=== PATIENT | male | born 1940 | race Caucasian/White ===

== ENCOUNTER 2017-01-14 11:33 | Outpatient (CLI) | payer MEDICARE, OTHER ==
[2017-01-14 11:55] LABS: CALCIUM 9.3 mg/dL (8.5-10.3); POTASSIUM 4.3 mmol/L (3.5-5.0)
--- NOTE | 2017-01-14 12:34 | XRAY Report ---
TWO-VIEW CHEST: 01/14/2017 CLINICAL INDICATION: Shortness of breath. COMPARISON: 09/12/2015 FINDINGS: Frontal and lateral views of the chest demonstrate stable changes of previous cardiac surg sunitha. The cardiac silhouette is not enlarged. The lungs are hyperinflated, compatible with COPD. No focal consolidation, effusion, or pneumothorax is present. IMPRESSION: COPD. POSTOPERATIVE CHANGES. NO EVIDENCE OF ACUTE CARDIOPULMONARY DISEASE. JOB #: [id number] EXT JOB #:[id number]
== END 2017-01-14 11:34 | disposition home or self-care (01) ==
LOC: LAB 11:33
PROVIDERS: ATTEND Internal Medicine Cardiovascular Disease
DX: J44.9 Chronic obstructive pulmonary disease, unspecified (principal); Z95.1 Presence of aortocoronary bypass graft; I45.2 Bifascicular block; I77.9 Disorder of arteries and arterioles, unspecified; I10 Essential (primary) hypertension; E87.5 Hyperkalemia; E78.00 Pure hypercholesterolemia, unspecified
CPT/HCPCS: 36415; 71020; 80048

== ENCOUNTER 2017-07-25 00:44 | Emergency (ER) | payer MEDICARE, OTHER ==
[2017-07-25] MEDS ORDERED: LIDOCAINE VISCOUS 2% 15 ML UDC MM STA (01:18)
--- NOTE | 2017-07-25 01:25 | ED Physician Documentation ---
PD HPI HEENT - Stated complaint Stated Complaint: THROAT PAIN - Chief complaint Chief Complaint: Resp - History obtained from History obtained from: Patient - History of Present Illness Timing - onset: How many days ago (3) Timing - details: Gradual onset, Still present Location: Throat Associated symptoms: No: Fever, Congestion Recently seen: Clinic - Additional information Additional information: Patient is a 77 year old male who is presenting to the emergency department for sore throat. patient has recently been diagnosed with pnuemonia, on azithromycin. patient states that he has developed a sore throat over the last few days. Review of Systems Constitutional: denies: Fever, Chills Eyes: reports: Reviewed and negative Ears: reports: Reviewed and negative Nose: denies: Rhinorrhea / runny nose, Congestion Throat: reports: Sore throat Cardiac: denies: Chest pain / pressure, Palpitations Respiratory: reports: Cough. denies: Wheezing GI: denies: Nausea, Vomiting : reports: Reviewed and negative Skin: reports: Reviewed and negative Musculoskeletal: reports: Reviewed and negative Neurologic: denies: Generalized weakness, Focal weakness Psychiatric: reports: Reviewed and negative Endocrine: reports: Reviewed and negative PD PAST MEDICAL HISTORY - Past Medical History Past Medical History: Yes Cardiovascular: Hypertension, High cholesterol, Coronary artery disease, [place] GI: Hiatal hernia Other Past Medical History: Bronchitis - Past Surgical History Past Surgical History: Yes Cardiovascular: CABG - Present Medications Home Medications: Ambulatory Orders Medication Instructions Recorded Confirmed Aspirin [Aspir 81] 81 mg PO 11/10/13 11/10/13 Atenolol 12.5 mg PO DAILY #30 tablet 11/10/13 Atorvastatin Calcium [Lipitor] 20 mg PO 11/10/13 11/10/13 Lisinopril 20 mg PO 11/10/13 11/10/13 Pantoprazole Sodium [Protonix] 40 mg PO DAILY 11/10/13 11/10/13 - Allergies Allergies/Adverse Reactions: Allergies Allergy/AdvReac Type Severity Reaction Status Date / Time Sulfa (Sulfonamide Allergy Intermediate Rash Verified 11/10/13 08:11 Antibiotics) - Social History Does the pt smoke?: No Smoking Status: Never smoker Does the pt drink ETOH?: No ETOH Use: Beer Does the pt have substance abuse?: No - Immunizations Immunizations are current?: Yes PD ED PE NORMAL - Vitals Vital signs reviewed: Yes - General General: Alert and oriented X 3, No acute distress, Well developed/nourished - HEENT HEENT: Atraumatic, PERRL, Moist mucous membranes - Neck Neck: Supple, no meningeal sign, No JVD - Cardiac Cardiac: RRR, No murmur - Respiratory Respiratory: No respiratory distress - Abdomen Abdomen: Soft - Derm Derm: Normal color, Warm and dry, No rash - Extremities Extremities: No deformity, Normal ROM s pain - Neuro Neuro: Alert and oriented X 3, No motor deficit, No sensory deficit, Normal speech PD ED PE EXPANDED - HEENT HEENT: Moist mucous membranes, Pharyngeal erythema. No: Swollen tonsils, Tonsillar exudate, Soft palate petecchiae Results - Vitals Vitals: Vital Signs - 24 hr 07/25/17 07/25/17 00:52 01:31 Temperature 36.4 C L 37.5 C Heart Rate 93 89 Respiratory 18 15 Rate Blood Pressure 167/74 H 149/78 H O2 Saturation 96 97 Oxygen O2 Source Room air PD MEDICAL DECISION MAKING - ED course Complexity details: reviewed old records, reviewed results, re-evaluated patient , considered differential, d/w patient ED course: patient was seen and examined at bedside. Patient was well appearing. Patient had mild pharyngeal erythema likely secondary to his cough. patient had no exudates or adenopathy. Patient was treated with viscous lidocaine. patient required no further work up and was stable for discharge with outpatient follow up. Departure - Departure Disposition: 01 Home, Self Care Clinical Impression: Pharyngitis Condition: Good Instructions: Strep Throat Follow-Up: Jeanmarie Hatfield MD [Primary Care Provider] - Within 3 Days Comments: Your symptoms today are likely secondary from all the coughing causing a sore throat. There is no apparent infection. You should look for throat drops that contain benzocaine or a similar substance. You should follow up with your doctor if your symptoms persist next week. You may return to the emergency department at any time for new, worsening or uncontrollable symptoms. Discharge Date/Time: 07/25/17 01:34
[2017-07-25 01:31] VITALS: BP 149/78
== END 2017-07-25 01:34 | disposition home or self-care (01) ==
LOC: ED 00:44
DX: J02.9 Acute pharyngitis, unspecified (principal); I10 Essential (primary) hypertension; I25.10 Atherosclerotic heart disease of native coronary artery without angina pectoris; Z95.1 Presence of aortocoronary bypass graft; I25.2 Old myocardial infarction; E78.00 Pure hypercholesterolemia, unspecified; Z79.82 Long term (current) use of aspirin
CPT/HCPCS: 96361; 96374; 99283; 99284

== ENCOUNTER 2017-08-27 09:19 | Outpatient (CLI) | payer MEDICARE, OTHER ==
[2017-08-27 09:44] LABS: CALCIUM 9.3 mg/dL (8.5-10.3); MAGNESIUM 2.3 mg/dL (1.7-2.8)
== END 2017-08-27 09:20 | disposition home or self-care (01) ==
LOC: LAB 09:19
PROVIDERS: ATTEND Internal Medicine Cardiovascular Disease
DX: I10 Essential (primary) hypertension (principal)
CPT/HCPCS: 80048; 83735

== ENCOUNTER 2018-08-22 09:21 | Emergency (ER) | payer MEDICARE, OTHER ==
--- NOTE | 2018-08-22 10:27 | ED Physician Documentation ---
PD HPI ABD PAIN - Stated complaint Stated Complaint: NAVEL PAIN - Chief complaint Chief Complaint: Abd Pain - History obtained from History obtained from: Patient - History of Present Illness Timing - onset: How many days ago (2) Timing - details: Still present Quality: Pain Location: Periumbilical Similar symptoms before: Diagnosis (Umbilical hernia) Recently seen: Clinic (He was seen in clinic by his primary physician this morning and) - Additional information Additional information: The patient is an 78-year-old male who has a history of a small periumbilical hernia for years. Usually it does not bother him, but for the past 3 days he has noticed that it is tender and is slightly bigger than usual. He denies fever, nausea or vomiting. He was seen by his primary physician this morning, and was sent here for further evaluation and treatment. His periumbilical hernia was repaired years ago by Dr. Mayur Jimenez, but recurred within months thereafter. Review of Systems Constitutional: denies: Fever Nose: denies: Congestion Throat: denies: Sore throat Cardiac: denies: Chest pain / pressure Respiratory: denies: Dyspnea, Cough GI: reports: Abdominal Pain. denies: Nausea, Vomiting : denies: Dysuria Skin: denies: Rash Musculoskeletal: denies: Back pain Neurologic: denies: Headache PD PAST MEDICAL HISTORY - Past Medical History Cardiovascular: Hypertension, High cholesterol, Coronary artery disease, [place] GI: Other (Periumbilical hernia) - Past Surgical History Past Surgical History: Yes Cardiovascular: CABG - Present Medications Home Medications: Ambulatory Orders Medication Instructions Recorded Confirmed Aspirin [Aspir 81] 81 mg PO DAILY 11/10/13 08/22/18 Atorvastatin Calcium [Lipitor] 40 mg PO DAILY PM 11/10/13 08/22/18 Lisinopril 10 mg PO BID 11/10/13 08/22/18 Pantoprazole Sodium [Protonix] 40 mg PO DAILY 11/10/13 08/22/18 - Allergies Allergies/Adverse Reactions: Allergies Allergy/AdvReac Type Severity Reaction Status Date / Time Sulfa (Sulfonamide Allergy Intermediate Rash Verified 11/10/13 08:11 Antibiotics) - Social History Does the pt smoke?: No Smoking Status: Never smoker Does the pt drink ETOH?: No Does the pt have substance abuse?: No - Immunizations Immunizations are current?: Yes - POLST Patient has POLST: No PD ED PE NORMAL - Vitals Vital signs reviewed: Yes (borderline systolic hypertension initially.) - General General: Alert and oriented X 3, Well developed/nourished - HEENT HEENT: Atraumatic, Moist mucous membranes - Cardiac Cardiac: RRR - Respiratory Respiratory: No respiratory distress, Clear bilaterally - Abdomen Abdomen: Normal bowel sounds, Soft, Other (There is a small periumbilical hernia, with associated tenderness to palpation focally at the hernia site. Abdomen is otherwise nontender.) - Back Back: No CVA TTP - Derm Derm: No rash - Extremities Extremities: No edema, No calf tenderness / cord - Neuro Neuro: Alert and oriented X 3, No motor deficit, Normal speech Results - Vitals Vitals: Vital Signs - 24 hr 08/22/18 08/22/18 08/22/18 09:54 10:07 10:37 Temperature 37.0 C Heart Rate 66 70 66 Respiratory 14 14 Rate Blood Pressure 141/77 H 114/98 H O2 Saturation 98 96 99 Oxygen O2 Source Room air PD MEDICAL DECISION MAKING - ED course Complexity details: considered differential, d/w patient ED course: Patient's presentation is significant for a small periumbilical hernia. His presentation does not suggest bowel obstruction or peritonitis. The hernia was able to be manually reduced with 5 minutes of gentle pressure. His symptoms completely resolved after reduction of the herniated contents. I discussed with him outpatient surgical follow-up, as well as potentially worrisome signs or symptoms that should prompt reevaluation in the emergency department. Departure - Departure Disposition: 01 Home, Self Care Clinical Impression: Periumbilical hernia Condition: Stable Follow-Up: [facility] [Provider Group] Jeanmarie Hatfield MD [Primary Care Provider] - Comments: Avoid abdominal straining. Follow-up with general surgery. Call for next available appointment. Return to the emergency department if you develop recurrent herniation that is not reducible, or otherwise worsening symptoms. Discharge Date/Time: 08/22/18 10:47
[2018-08-22 10:38] VITALS: BP 114/98
== END 2018-08-22 10:47 | disposition home or self-care (01) ==
LOC: ED 09:21
DX: K42.9 Umbilical hernia without obstruction or gangrene (principal); I10 Essential (primary) hypertension; E78.00 Pure hypercholesterolemia, unspecified; I25.10 Atherosclerotic heart disease of native coronary artery without angina pectoris; I25.2 Old myocardial infarction; Z79.82 Long term (current) use of aspirin
CPT/HCPCS: 99283

== ENCOUNTER 2018-09-07 11:27 | Outpatient (CLI) | payer MEDICARE, OTHER ==
[2018-09-07 11:41] LABS: BASOPHILS # (AUTO) 0.1 10^3/uL (0.0-0.1); BASOPHILS % (AUTO) 0.7 %; EOSINOPHILS # (AUTO) 0.4 10^3/uL (0.0-0.7); EOSINOPHILS % (AUTO) 5.5 %; HGB - HEMOGLOBIN 14.3 g/dL (14.0-18.0); LYMPHOCYTES # (AUTO) 1.8 10^3/uL (1.5-3.5); LYMPHOCYTES % (AUTO) 23.7 %; MEAN CORPUSCULAR HEMOGLOBIN 31.3 pg (27.0-31.0); MEAN CORPUSCULAR HGB CONC 33.8 g/dL (32.0-36.0); MEAN CORPUSCULAR VOLUME 92.5 fL (80.0-94.0); MEAN PLATELET VOLUME 8.4 fL (7.4-11.4); MONOCYTES # (AUTO) 0.6 10^3/uL (0.0-1.0); MONOCYTES % (AUTO) 7.9 %; NEUTROPHILS # (AUTO) 4.7 10^3/uL (1.5-6.6); NEUTROPHILS % (AUTO) 62.2 %; PLT - PLATELET COUNT 252 10^3/uL (130-450); RED BLOOD COUNT 4.57 10^6/uL (4.70-6.10); WHITE BLOOD COUNT 7.5 x10^3/uL (4.8-10.8)
[2018-09-07 11:55] LABS: ALBUMIN 4.5 g/dL (3.2-5.5); ALBUMIN/GLOBULIN RATIO 1.7 (1.0-2.2); BILIRUBIN,TOTAL 0.8 mg/dL (0.2-1.0); CALCIUM 9.5 mg/dL (8.5-10.3); CREATININE 1.1 mg/dL (0.6-1.2); TOTAL PROTEIN 7.2 g/dL (6.7-8.2)
== END 2018-09-07 11:28 | disposition home or self-care (01) ==
LOC: LAB 11:27
PROVIDERS: ATTEND Internal Medicine Gastroenterology
DX: I10 Essential (primary) hypertension (principal); K42.9 Umbilical hernia without obstruction or gangrene; I25.10 Atherosclerotic heart disease of native coronary artery without angina pectoris; Z95.1 Presence of aortocoronary bypass graft
CPT/HCPCS: 36415; 80053; 85025

== ENCOUNTER 2018-09-12 06:05 | Day surgery (SDC) | payer MEDICARE, OTHER ==
[2018-09-12] MEDS ORDERED: ceFAZolin 2 GM/50 ML 2 GM/50 ML BAG IV ONE (06:27)
[2018-09-12] MEDS ORDERED: BUPIVACAINE 0.5%-EPI 1:200000 PF 30 ML VIAL ONE (07:16)
[2018-09-12] MEDS ORDERED: SILVER SULFADIAZINE CREAM 25 GM TUBE TOP ONE (07:16)
[2018-09-12] MEDS ORDERED: BUPIVACAINE 0.5% PF 30 ML VIAL ONE (07:18)
[2018-09-12] MEDS ORDERED: ceFAZolin 1 GM VIAL ONE (07:18)
--- NOTE | 2018-09-12 07:18 | ANESTHESIA ---
Pre-Anesthesia VS, & Labs - Diagnosis umbilical hernia - Procedure umbilical hernia repair Vital Signs: Temp Pulse Resp BP Pulse Ox 36.4 C L 65 16 151/69 H 96 09/12/18 06:42 09/12/18 06:42 09/12/18 06:42 09/12/18 06:42 09/12/18 06:42 Height 5 ft 8 in Weight (kg) 78.1 kg Body Mass Index 25.8 - NPO >8 hours Home Medications and Allergies Home Medications: Ambulatory Orders Ascorbic Acid [Vitamin C] 1,000 mg PO DAILY 09/08/18 Chlorthalidone 12.5 mg PO DAILY 09/08/18 Cholecalciferol (Vitamin D3) [Vitamin D3] 1,000 unit PO DAILY 09/08/18 Multivitamin [Multivitamins] 1 each PO DAILY 09/08/18 Vit A and D3 in Cod Liver Oil [Cod Liver Oil Softgel] 1 each PO DAILY 09/08/18 Aspirin [Aspir 81] 81 mg PO DAILY 11/10/13 Atorvastatin Calcium [Lipitor] 40 mg PO DAILY PM 11/10/13 Lisinopril 40 mg PO DAILY 11/10/13 Pantoprazole Sodium [Protonix] 40 mg PO DAILY 11/10/13 Ascorbic Acid [Vitamin C] 1,000 mg PO DAILY 09/08/18 Chlorthalidone 12.5 mg PO DAILY 09/08/18 Cholecalciferol (Vitamin D3) [Vitamin D3] 1,000 unit PO DAILY 09/08/18 Multivitamin [Multivitamins] 1 each PO DAILY 09/08/18 Vit A and D3 in Cod Liver Oil [Cod Liver Oil Softgel] 1 each PO DAILY 09/08/18 Allergies/Adverse Reactions: Allergies Allergy/AdvReac Type Severity Reaction Status Date / Time Sulfa (Sulfonamide Allergy Intermediate Rash Verified 09/12/18 06:56 Antibiotics) Anes History & Medical History - Anesthetic History Anesthesia Complications: reports: No previous complications - Medical History Cardiovascular: reports: Hypertension, High cholesterol, Coronary artery disease, [place], Murmur Pulmonary: reports: COPD, Emphysema, Pneumonia Gastrointestinal: reports: GERD, Hiatal hernia Urinary: reports: Benign prostate hypertrophy Musculoskeletal: reports: None Endocrine/Autoimmune: reports: None Skin: reports: None Smoking Status: Never smoker - Surgical History General: Cholecystectomy, Appendectomy, Other Eyes Ears Nose Throat (EENT): Cataracts Cardiothoracic: CABG, Vascular surgery, Other Exam General: Alert Dental: Dentures full Upper, Partials Lower Mouth Opening: Greater than 4 Fingerbreadths Neck Mobility: Normal Mallampati classification: II Respiratory: Lungs clear Cardiovascular: Regular rate Plan Anesthesia Type: General, MAC Consent for Procedure(s) Verified and Reviewed: Yes Code Status: Attempt Resuscitation ASA classification: 3-Severe systemic disease Is this case an emergency?: No
--- NOTE | 2018-09-12 07:25 | ANESTHESIA ---
Pre-Anesthesia VS, & Labs - Diagnosis recurrent umbilical hernia - Procedure open umbilical hernia repair Vital Signs: Temp Pulse Resp BP Pulse Ox 36.4 C L 65 16 151/69 H 96 09/12/18 06:42 09/12/18 06:42 09/12/18 06:42 09/12/18 06:42 09/12/18 06:42 Height 5 ft 8 in Weight (kg) 78.1 kg Body Mass Index 25.8 Home Medications and Allergies Home Medications: Ambulatory Orders Ascorbic Acid [Vitamin C] 1,000 mg PO DAILY 09/08/18 Chlorthalidone 12.5 mg PO DAILY 09/08/18 Cholecalciferol (Vitamin D3) [Vitamin D3] 1,000 unit PO DAILY 09/08/18 Multivitamin [Multivitamins] 1 each PO DAILY 09/08/18 Vit A and D3 in Cod Liver Oil [Cod Liver Oil Softgel] 1 each PO DAILY 09/08/18 Aspirin [Aspir 81] 81 mg PO DAILY 11/10/13 Atorvastatin Calcium [Lipitor] 40 mg PO DAILY PM 11/10/13 Lisinopril 40 mg PO DAILY 11/10/13 Pantoprazole Sodium [Protonix] 40 mg PO DAILY 11/10/13 Ascorbic Acid [Vitamin C] 1,000 mg PO DAILY 09/08/18 Chlorthalidone 12.5 mg PO DAILY 09/08/18 Cholecalciferol (Vitamin D3) [Vitamin D3] 1,000 unit PO DAILY 09/08/18 Multivitamin [Multivitamins] 1 each PO DAILY 09/08/18 Vit A and D3 in Cod Liver Oil [Cod Liver Oil Softgel] 1 each PO DAILY 09/08/18 Allergies/Adverse Reactions: Allergies Allergy/AdvReac Type Severity Reaction Status Date / Time Sulfa (Sulfonamide Allergy Intermediate Rash Verified 09/12/18 06:56 Antibiotics) Anes History & Medical History - Medical History Cardiovascular: reports: Hypertension, High cholesterol, Coronary artery disease, [place], Murmur Pulmonary: reports: COPD, Emphysema, Pneumonia Gastrointestinal: reports: GERD, Hiatal hernia Urinary: reports: Benign prostate hypertrophy Musculoskeletal: reports: None Endocrine/Autoimmune: reports: None Skin: reports: None Smoking Status: Never smoker - Surgical History General: Cholecystectomy, Appendectomy, Other Eyes Ears Nose Throat (EENT): Cataracts Cardiothoracic: CABG, Vascular surgery, Other
[2018-09-12] MEDS ORDERED: fentaNYL 100 MCG/2 ML VIAL IVP ONE (07:30)
[2018-09-12] MEDS ORDERED: PROPOFOL 200 MG/20 ML VIAL IVP ONE (07:30)
[2018-09-12] MEDS ORDERED: LIDOCAINE-MPF 2% 5 ML VIAL IM ONE (07:30)
[2018-09-12] MEDS ORDERED: MIDAZOLAM 2 MG/2 ML VIAL IVP ONE (07:30)
[2018-09-12] MEDS ORDERED: LIDOCAINE-MPF 1% 30 ML VIAL ONE (07:34)
[2018-09-12] MEDS ORDERED: BUPIVACAINE 0.25%-EPI 1:200000 PF 10 ML VIAL SUBQ ONE (08:30)
[2018-09-12] MEDS ORDERED: LIDOCAINE 1% 50 ML MDV SUBQ ONE (08:30)
[2018-09-12] MEDS ORDERED: LACTATED RINGERS 1,000 ML IV ONE (08:31)
[2018-09-12] MEDS ORDERED: ACETAMINOPHEN 325 MG TABLET PO PRN (08:41)
[2018-09-12] MEDS ORDERED: ONDANSETRON 4 MG/2 ML VIAL IVP PRN (08:41)
[2018-09-12] MEDS ORDERED: IBUPROFEN 600 MG TABLET PO PRN (08:41)
[2018-09-12] MEDS ORDERED: oxyCODONE 5 MG TABLET PO PRN (08:41)
[2018-09-12 09:33] VITALS: BP 134/74
--- NOTE | 2018-09-12 09:35 | OPERATIVE REPORT ---
DATE OF SERVICE: 09/12/2018 Physician: Weston Pedroza MD PREOPERATIVE DIAGNOSIS: Symptomatic recurrent umbilical hernia. POSTOPERATIVE DIAGNOSES 1. Symptomatic recurrent incarcerated umbilical hernia. 2. Omental mass lesion. PROCEDURES 1. Open repair of recurrent incarcerated umbilical hernia with polypropylene mesh. 2. Excision of omental mass lesion. SURGEON: Weston Pedroza MD. ANESTHESIA: Local plus monitored anesthesia care by Adarsh Martinez CRNA. ESTIMATED BLOOD LOSS: 5 mL. COMPLICATIONS: None. FINDINGS: An approximately 15 mm fascial defect was present, through which omentum had herniated, and involved with the omentum was an approximately 10 mm mass at the omental tip that was incarcerated within the hernia sac. The remainder of the visualized omentum appeared normal. A Ventralex ST hernia patch, 4.3 cm diameter small lower brule style patch, was used and placed in a preperitoneal location. INDICATIONS FOR PROCEDURE: The patient is an 78-year-old gentleman with a recent onset of a painful umbilical bulge. He is status post prior umbilical hernia repair in the remote past. Examination revealed what was thought to be a reducible recurrent umbilical hernia. He was advised to undergo repair. TECHNIQUE: After informed consent, the patient was taken to the operating room where he was sedated and monitored. Preoperative preparation included application of sequential calf compression boots, administration of 2 grams cefazolin intravenously within an hour of the incision. His abdomen was prepped with ChloraPrep solution, following which a periumbilical block was instituted using a 50:50 combination of 1% lidocaine plain and 0.5% Marcaine with epinephrine. A total of 25 mL of the mixture was used. His abdomen was re- prepared with ChloraPrep solution and draped in usual sterile fashion. A transverse incision was made along the inferior edge of the umbilicus and carried down through subcutaneous tissues. Hemostasis achieved with electrocautery. The umbilical dermis was dissected off of the underlying hernia sac. The hernia sac was entered. Adhesions were lysed. The hernia sac was excised and discarded. The fascial edges are mobilized circumferentially. Hernia contents seemed to be omentum, with a mass at its tip. The most distal 2 cm of omentum were ligated and divided, amputating the tip with the mass, which was sent for pathologic evaluation. Hemostasis was achieved with 2-0 Vicryl ties and electrocautery. The remnant of the omentum was reduced into the peritoneal cavity, the fascial edges mobilized circumferentially. The preperitoneal space was developed circumferentially of sufficient size to allow placement of the 4.3 cm Ventralex small lower brule patch in a preperitoneal location. After hemostasis was ensured and the wound irrigated with antibiotic solution containing 1 gram of cefazolin per liter, the patch was placed in the preperitoneal position, held against the anterior wall by the attached strap, and the fascial edges were closed transversely over the patch, including each suture in the strap, to anchor it in place. Approximately five #0 Ethibond sutures were used. Excess hernia sac was excised and after hemostasis had been ensured, the wound was then irrigated with antibiotic solution, following which wound closure was accomplished in layers using 2-0 Vicryl reapproximating the umbilical dermis to the anterior fascia, followed by continuous 3-0 Vicryl to reapproximate the subcutaneous tissue, followed by 4-0 Monocryl subcuticular skin closure, and Dermabond. The procedure was terminated. The patient was transferred out of the operating room in satisfactory condition. All counts were correct x2, and no drains were used. TD: 09/12/2018 09:13 GLORIA
== END 2018-09-12 06:06 | disposition home or self-care (01) ==
LOC: SDS 06:05
PROVIDERS: ATTEND Internal Medicine Gastroenterology
PROC: 0WUF0JZ Supplement Abdominal Wall with Synthetic Substitute, Open Approach (ICD-10-PCS; principal; 2018-09-12 07:30)
DX: K42.0 Umbilical hernia with obstruction, without gangrene (principal); J43.9 Emphysema, unspecified; I10 Essential (primary) hypertension; I73.9 Peripheral vascular disease, unspecified; I25.10 Atherosclerotic heart disease of native coronary artery without angina pectoris; Z95.1 Presence of aortocoronary bypass graft
CPT/HCPCS: 49587; A9270; C1781; J0690; J7120

== ENCOUNTER 2018-10-20 09:31 | Outpatient (CLI) | payer MEDICARE, OTHER | END 2018-10-20 09:32 | disposition short-term general hospital (02) | LOC: EMS 09:31 | PROVIDERS: ATTEND Surgery | DX: R07.9 Chest pain, unspecified (principal) | CPT/HCPCS: A0425; A0429 ==

== ENCOUNTER 2019-05-18 13:43 | Outpatient (CLI) | payer MEDICARE, OTHER ==
[2019-05-18 14:22] LABS: CALCIUM 9.4 mg/dL (8.5-10.3); CREATININE 1.1 mg/dL (0.6-1.2)
== END 2019-05-18 13:44 | disposition home or self-care (01) ==
LOC: LAB 13:43
PROVIDERS: ATTEND Internal Medicine Cardiovascular Disease
DX: I10 Essential (primary) hypertension (principal)
CPT/HCPCS: 36415; 80048

== ENCOUNTER 2021-05-12 08:17 | Outpatient (CLI) | payer MEDICARE, OTHER ==
[2021-05-12 09:06] LABS: ALBUMIN 4.3 g/dL (3.2-5.5); ALBUMIN/GLOBULIN RATIO 1.6 (1.0-2.2); BILIRUBIN,TOTAL 0.9 mg/dL (0.2-1.0); CALCIUM 9.5 mg/dL (8.5-10.3); CREATININE 1.1 mg/dL (0.6-1.2); POTASSIUM 4.4 mmol/L (3.5-5.0)
== END 2021-05-12 08:18 | disposition home or self-care (01) ==
LOC: LAB 08:17
PROVIDERS: ATTEND Internal Medicine Cardiovascular Disease
DX: I10 Essential (primary) hypertension (principal)
CPT/HCPCS: 36415; 80053

== ENCOUNTER 2021-05-26 09:07 | Outpatient (CLI) | payer MEDICARE, OTHER ==
[2021-05-26 09:42] LABS: CALCIUM 9.4 mg/dL (8.5-10.3); CREATININE 1.2 mg/dL (0.6-1.2)
== END 2021-05-26 09:08 | disposition home or self-care (01) ==
LOC: LAB 09:07
PROVIDERS: ATTEND Internal Medicine Cardiovascular Disease
DX: E87.1 Hypo-osmolality and hyponatremia (principal)
CPT/HCPCS: 36415; 80048; 83930; 84443

== ENCOUNTER 2021-06-03 10:32 | Outpatient (CLI) | payer MEDICARE, OTHER ==
[2021-06-03 10:54] LABS: BASOPHILS % (AUTO) 0.3 %; EOSINOPHILS # (AUTO) 0.2 10^3/uL (0.0-0.7); EOSINOPHILS % (AUTO) 2.8 %; HCT - HEMATOCRIT 40.7 % (42.0-52.0); HGB - HEMOGLOBIN 13.7 g/dL (14.0-18.0); LYMPHOCYTES # (AUTO) 1.2 10^3/uL (1.5-3.5); LYMPHOCYTES % (AUTO) 18.4 %; MEAN CORPUSCULAR HEMOGLOBIN 31.4 pg (27.0-31.0); MEAN CORPUSCULAR HGB CONC 33.7 g/dL (32.0-36.0); MEAN CORPUSCULAR VOLUME 93.1 fL (80.0-94.0); MEAN PLATELET VOLUME 9.9 fL (7.4-11.4); MONOCYTES # (AUTO) 0.5 10^3/uL (0.0-1.0); MONOCYTES % (AUTO) 7.6 %; NEUTROPHILS # (AUTO) 4.6 10^3/uL (1.5-6.6); NEUTROPHILS % (AUTO) 70.7 %; PLT - PLATELET COUNT 266 10^3/uL (130-450); RED BLOOD COUNT 4.37 10^6/uL (4.70-6.10); RED CELL DISTRIBUTION WIDTH 12.6 % (12.0-15.0); WHITE BLOOD COUNT 6.5 x10^3/uL (4.8-10.8)
[2021-06-03 11:07] LABS: ALBUMIN 4.6 g/dL (3.2-5.5); ALBUMIN/GLOBULIN RATIO 1.8 (1.0-2.2); BILIRUBIN,TOTAL 1.1 mg/dL (0.2-1.0); CALCIUM 9.8 mg/dL (8.5-10.3); CREATININE 1.2 mg/dL (0.6-1.2); MAGNESIUM 2.2 mg/dL (1.7-2.8); TOTAL PROTEIN 7.1 g/dL (6.7-8.2)
== END 2021-06-03 10:33 | disposition home or self-care (01) ==
LOC: LAB 10:32
PROVIDERS: ATTEND Family Medicine
DX: E11.9 Type 2 diabetes mellitus without complications (principal); E55.9 Vitamin D deficiency, unspecified; E78.00 Pure hypercholesterolemia, unspecified; I50.9 Heart failure, unspecified; Z79.899 Other long term (current) drug therapy; R33.8 Other retention of urine
CPT/HCPCS: 36415; 80053; 81599; 82306; 82607; 83735; 84436; 84479; 85025

== ENCOUNTER 2023-07-01 08:53 | Outpatient (CLI) | payer MEDICARE, OTHER | END 2023-07-01 08:54 | disposition critical access hospital (66) | LOC: EMS 08:53 | DX: R06.09 Other forms of dyspnea (principal); M54.50 Low back pain, unspecified; R33.9 Retention of urine, unspecified | CPT/HCPCS: A0425; A0427 ==

== ENCOUNTER 2023-07-01 09:04 | Emergency (ER) | payer MEDICARE, OTHER ==
--- NOTE | 2023-07-01 09:45 | ED Physician Documentation ---
PD HPI DYSPNEA - Stated complaint Stated Complaint: DIFFICULTY BREATHING/BACK PX - Chief complaint Chief Complaint: Resp - History obtained from History obtained from: Patient, EMS - History of Present Illness Timing - onset: How many days ago (few) Timing - onset during: Light activity Timing - duration: Days (few) Timing - details: Gradual onset, Still present (onset of dyspnea and has had ongoing low back pain. Has taken Tylenol for back. Today was noting difficulty with urination, with feeling of incomplete emptying and has not been able to urinate since during the night. Did have some urine output here in ER.) Inciting event(s): No: Out of meds, URI Improved by: Rest. No: Sitting up Worsened by: Coughing. No: Laying flat Associated symptoms: Cough, Wheezing. No: Fever Similar symptoms before: Diagnosis (COPD) Recently seen: Not recently seen Review of Systems Constitutional: reports: Chills, Myalgias. denies: Fever Nose: reports: Congestion Throat: denies: Sore throat Cardiac: denies: Chest pain / pressure, Palpitations Respiratory: reports: Dyspnea, Cough, Wheezing GI: reports: Constipation. denies: Abdominal Pain, Vomiting, Diarrhea : denies: Dysuria Musculoskeletal: reports: Joint pain (pain right hip after lifting week abgo. No fall/impact.) PD PAST MEDICAL HISTORY - Past Medical History Past Medical History: Yes Cardiovascular: Hypertension, High cholesterol, Coronary artery disease, [place] Respiratory: COPD, Emphysema GI: Other - Past Surgical History Past Surgical History: Yes Cardiovascular: CABG - Present Medications Home Medications: Ambulatory Orders Medication Instructions Recorded Confirmed Atorvastatin Calcium [Lipitor] 40 mg PO DAILY PM 11/10/13 07/01/23 Lisinopril 40 mg PO DAILY 11/10/13 07/01/23 Pantoprazole Sodium [Protonix] 40 mg PO DAILY 11/10/13 07/01/23 Chlorthalidone 25 mg PO DAILY 09/08/18 07/01/23 Albuterol Sulf [Ventolin Hfa 1 - 2 puffs INH Q4HR PRN #1 each 07/01/23 Inhaler] Docusate Sodium 100Mg Capsule 100 mg PO DAILY #20 cap 07/01/23 [Colace 100Mg Capsule] HYDROcod/ACETAM 5/325 [[place] 5/325] 1 ea PO Q6H PRN #14 tablet 07/01/23 Meloxicam [Mobic] 7.5 mg PO BID 10 Days #20 tablet 07/01/23 Tamsulosin [Flomax] 0.4 mg PO DAILY #20 cap 07/01/23 dexAMETHasone [Decadron] 4 mg PO DAILY #5 tablet 07/01/23 - Allergies Allergies/Adverse Reactions: Allergies Allergy/AdvReac Type Severity Reaction Status Date / Time Sulfa (Sulfonamide Allergy Intermediate Rash Verified 07/01/23 09:21 Antibiotics) - Social History Does the pt smoke?: No Smoking Status: Never smoker Does the pt drink ETOH?: No Does the pt have substance abuse?: No - Immunizations Immunizations are current?: Yes - POLST Patient has POLST: No PD ED PE NORMAL - Vitals Vital signs reviewed: Yes - General General: Alert and oriented X 3, No acute distress, Well developed/nourished - Cardiac Cardiac: RRR, No murmur - Respiratory Respiratory: No: Clear bilaterally (no coarse sounds, but does have exp wheezing notedd diffusely. ) - Abdomen Abdomen: Soft, Non tender - Back Back: No CVA TTP - Derm Derm: Normal color, Warm and dry - Extremities Extremities: No edema, No calf tenderness / cord, Other (right hip with some tenderness laterally. No pain iwthimpaction nor roatation passively. ) - Neuro Neuro: Alert and oriented X 3, No motor deficit, No sensory deficit, Normal speech Results - Vitals Vitals: Vital Signs - 24 hr 07/01/23 07/01/23 07/01/23 09:16 11:02 11:33 Temperature 36.5 C 36.9 C Heart Rate 90 93 93 Respiratory 18 20 20 Rate Blood Pressure 181/127 H 143/70 H O2 Saturation 97 97 07/01/23 13:10 Temperature Heart Rate 82 Respiratory 18 Rate Blood Pressure 149/65 H O2 Saturation 96 Oxygen O2 Source Room air - Labs Labs: Laboratory Tests 07/01/23 07/01/23 07/01/23 10:25 10:40 10:46 WBC 9.1 RBC 4.14 L Hgb 12.8 L Hct 38.5 L MCV 93.0 MCH 30.9 MCHC 33.2 RDW 13.2 Plt Count 270 MPV 9.7 Neut # (Auto) 7.5 H Lymph # (Auto) 0.9 L [place] # (Auto) 0.7 Eos # (Auto) 0.1 Baso # (Auto) 0.0 Absolute Nucleated RBC 0.00 Nucleated RBC % 0.0 Sodium Potassium Chloride Carbon Dioxide Anion Gap BUN Creatinine Estimated GFR (MDRD) Glucose Calcium Magnesium Total Bilirubin AST ALT Alkaline Phosphatase Total Protein Albumin Globulin Albumin/Globulin Ratio Lipase Urine Color LT. YELLOW Urine Clarity CLEAR Urine pH 7.0 Ur Specific [place] 1.010 Urine Protein NEGATIVE Urine Glucose (UA) NEGATIVE Urine Ketones NEGATIVE Urine Occult Blood NEGATIVE Urine Nitrite NEGATIVE Urine Bilirubin NEGATIVE Urine Urobilinogen 0.2 (NORMAL) Ur Leukocyte Esterase NEGATIVE Ur Microscopic Review NOT INDICATED Urine Culture Comments NOT INDICATED Nasal Adenovirus (PCR) NOT DETECTED Nasal B. parapertussis DNA (PCR) NOT DETECTED Nasal Coronavir 229E PCR NOT DETECTED Nasal Coronavir HKU1 PCR NOT DETECTED Nasal Coronavir NL63 PCR NOT DETECTED Nasal Coronavir OC43 PCR NOT DETECTED Nasal Enterovir/Rhinovir PCR NOT DETECTED Nasal Influenza B PCR NOT DETECTED Nasal Influenza A PCR NOT DETECTED Nasal Parainfluen 1 PCR NOT DETECTED Nasal Parainfluen 2 PCR NOT DETECTED Nasal Parainfluen 3 PCR NOT DETECTED Nasal Parainfluen 4 PCR NOT DETECTED Nasal RSV (PCR) NOT DETECTED Nasal B.pertussis DNA PCR NOT DETECTED Nasal C.pneumoniae (PCR) NOT DETECTED [place] Human Metapneumo PCR NOT DETECTED Nasal M.pneumoniae (PCR) NOT DETECTED Nasal SARS-CoV-2 (PCR) NOT DETECTED 07/01/23 10:46 WBC RBC Hgb Hct MCV MCH MCHC RDW Plt Count MPV Neut # (Auto) Lymph # (Auto) [place] # (Auto) Eos # (Auto) Baso # (Auto) Absolute Nucleated RBC Nucleated RBC % Sodium 135 Potassium 3.8 Chloride 96 L Carbon Dioxide 33 H Anion Gap 6.0 BUN 16 Creatinine 1.0 Estimated GFR (MDRD) 71 L Glucose 132 H Calcium 9.6 Magnesium 2.0 Total Bilirubin 0.5 AST 15 ALT 13 Alkaline Phosphatase 47 Total Protein 6.4 Albumin 4.1 Globulin 2.3 Albumin/Globulin Ratio 1.8 Lipase 18 Urine Color Urine Clarity Urine pH Ur Specific [place] Urine Protein Urine Glucose (UA) Urine Ketones Urine Occult Blood Urine Nitrite Urine Bilirubin Urine Urobilinogen Ur Leukocyte Esterase Ur Microscopic Review Urine Culture Comments Nasal Adenovirus (PCR) Nasal B. parapertussis DNA (PCR) Nasal Coronavir 229E PCR Nasal Coronavir HKU1 PCR Nasal Coronavir NL63 PCR Nasal Coronavir OC43 PCR Nasal Enterovir/Rhinovir PCR Nasal Influenza B PCR Nasal Influenza A PCR Nasal Parainfluen 1 PCR Nasal Parainfluen 2 PCR Nasal Parainfluen 3 PCR Nasal Parainfluen 4 PCR Nasal RSV (PCR) Nasal B.pertussis DNA PCR Nasal C.pneumoniae (PCR) [place] Human Metapneumo PCR Nasal M.pneumoniae (PCR) Nasal SARS-CoV-2 (PCR) - Rads (name of study) chest xray Relevant Findings:: Prelim report reviewed, EMP independent interpretation of test (no acute abnormalities. ) right hip Relevant Findings:: Prelim report reviewed (some arthritic changes. No fractures. no bony lesions. ), EMP independent interpretation of test PD Medical Decision Making - ED course Complexity details: reviewed results, considered differential (poor urine output now minimal overnight. Bladder scanner showing only 240 ml post void though. Has wheezing with cough and history of COPD. Can have him use MDI regularly and add short course steroids. Add prostate med. ), d/w patient Departure - Departure Disposition: 01 Home, Self Care Clinical Impression: Acute on chronic urinary retention COPD (chronic obstructive pulmonary disease) Qualifiers: COPD type: COPD with acute exacerbation Qualified Code(s): J44.1 - Chronic obstructive pulmonary disease with (acute) exacerbation Hip pain, acute Qualifiers: Laterality: right Qualified Code(s): M25.551 - Pain in right hip Constipation Qualifiers: Constipation type: unspecified constipation type Qualified Code(s): K59.00 - Constipation, unspecified Condition: Stable Record reviewed to determine appropriate education?: Yes Instructions: ED COPD Flare, ED Retention Urinary Male Follow-Up: Brad Olmedo MD [Provider Admit Priv/Credential] - Jeanmarie Hatfield MD [Physician No Access] - Prescriptions: Albuterol Sulf [Ventolin Hfa Inhaler] 1 - 2 puffs INH Q4HR PRN #1 each PRN Reason: Shortness Of Air/Wheezing Docusate Sodium 100Mg Capsule [Colace 100Mg Capsule] 100 mg PO DAILY #20 cap dexAMETHasone [Decadron] 4 mg PO DAILY #5 tablet Tamsulosin [Flomax] 0.4 mg PO DAILY #20 cap Meloxicam [Mobic] 7.5 mg PO BID 10 Days #20 tablet HYDROcod/ACETAM 5/325 [[place] 5/325] 1 ea PO Q6H PRN #14 tablet PRN Reason: Pain Comments: Your chest x-ray is clear without any signs of pneumonia, fluid in the lungs or fluid around the lungs. The x-ray of your hip shows arthritic changes but no obvious fractures or dislocation. For the hip and back pain, I would suggest initially using a steroid anti- inflammatory called Decadron daily for the next 5 days. This would also be helpful for your COPD/trouble breathing. After that I would change to meloxicam nonsteroidal anti-inflammatory to help with the hip. Take this twice daily with food. To that add Tylenol 500 to 650 mg every 4 times a day as needed for pains for your hip and back. You can add hydrocodone/acetaminophen if needed for worse pains at times. Some of your trouble urinating may relate to enlargement of the prostate. I would suggest a prostate reducing medication daily and also a stool softener as there can be some element of pressure on the prostate and therefore unable to urinate well with constipation 2. For your breathing, use inhaler 2 puffs 4 times daily regularly and see if that helps generally. Follow-up with your primary care regarding further care of all of these. You could also follow-up with urology to further investigate any needs for your prostate/ trouble urinating. Currently your emptying your bladder well enough. Return to the ER if you are unable to urinate at all to the point of discomfort. Forms: PCP List Discharge Date/Time: 07/01/23 13:24
[2023-07-01] MEDS ORDERED: ALBUTEROL 1 PUFF INH STA (10:24)
[2023-07-01] MEDS ORDERED: dexAMETHasone 4 MG TABLET PO STA (10:25)
[2023-07-01 10:52] LABS: BASOPHILS % (AUTO) 0.2 %; EOSINOPHILS # (AUTO) 0.1 10^3/uL (0.0-0.7); EOSINOPHILS % (AUTO) 0.7 %; HCT - HEMATOCRIT 38.5 % (42.0-52.0); HGB - HEMOGLOBIN 12.8 g/dL (14.0-18.0); LYMPHOCYTES # (AUTO) 0.9 10^3/uL (1.5-3.5); LYMPHOCYTES % (AUTO) 9.4 %; MEAN CORPUSCULAR HEMOGLOBIN 30.9 pg (27.0-31.0); MEAN CORPUSCULAR HGB CONC 33.2 g/dL (32.0-36.0); MEAN PLATELET VOLUME 9.7 fL (7.4-11.4); MONOCYTES # (AUTO) 0.7 10^3/uL (0.0-1.0); MONOCYTES % (AUTO) 7.5 %; NEUTROPHILS # (AUTO) 7.5 10^3/uL (1.5-6.6); PLT - PLATELET COUNT 270 10^3/uL (130-450); RED BLOOD COUNT 4.14 10^6/uL (4.70-6.10); RED CELL DISTRIBUTION WIDTH 13.2 % (12.0-15.0); WHITE BLOOD COUNT 9.1 x10^3/uL (4.8-10.8)
--- NOTE | 2023-07-01 10:52 | XRAY Report ---
PROCEDURE: Chest 1V INDICATIONS: chest pain TECHNIQUE: One view of the chest was acquired. COMPARISON: Chest x-ray 01/14/2017. FINDINGS: Surgical changes and devices: Median sternotomy wires. Surgical clips projecting over the mediastinu m. Lungs and pleura: No pleural effusions or pneumothorax. Lungs are clear. Hyperexpanded lungs, cons istent with COPD are again noted. Mediastinum: Mediastinal contours appear normal. Heart size is normal. Bones and chest wall: No suspicious bony lesions. Overlying soft tissues appear unremarkable. IMPRESSION: No acute cardiopulmonary process. Reviewed by: Tanner Quinn MD on 07/01/2023 10:51 AM PST Approved by: Tanner Quinn MD on 07/01/2023 10:51 AM PST Station ID: [id number]
--- NOTE | 2023-07-01 10:54 | XRAY Report ---
PROCEDURE: Hip w/Pelvis 2-3V RT INDICATIONS: hip pain for month or more TECHNIQUE: An AP view the pelvis and frog-leg lateral view of the right hip acquired. COMPARISON: None. FINDINGS: Bones: No fractures or dislocations. No suspicious bony lesions. Mild right hip degenerative post ge. Soft tissues: Visualized bowel gas pattern is normal. No suspicious soft tissue calcifications. IMPRESSION: Mild right hip degenerative change. No acute bony abnormality. Reviewed by: Chad Perez MD on 07/01/2023 10:53 AM PST Approved by: Chad Perez MD on 07/01/2023 10:53 AM [facility] Station ID: [id number]
[2023-07-01 11:01] LABS: BILIRUBIN,URINE NEGATIVE (NEGATIVE); GLUCOSE, URINE (UA) NEGATIVE (NEGATIVE); KETONES,URINE (UA) NEGATIVE (NEGATIVE); LEUKOCYTE ESTERASE, URINE NEGATIVE (NEGATIVE); NITRITE,URINE NEGATIVE (NEGATIVE); OCCULT BLOOD,URINE NEGATIVE (NEGATIVE); PROTEIN,URINE NEGATIVE (NEGATIVE); UROBILINOGEN,URINE 0.2 (NORMAL) E.U./dL (NORMAL)
[2023-07-01 11:02] LABS: CLARITY,URINE CLEAR (CLEAR)
[2023-07-01 11:05] LABS: ALBUMIN 4.1 g/dL (3.2-5.5); ALBUMIN/GLOBULIN RATIO 1.8 (1.0-2.2); BILIRUBIN,TOTAL 0.5 mg/dL (0.2-1.0); CALCIUM 9.6 mg/dL (8.5-10.3); POTASSIUM 3.8 mmol/L (3.5-4.5); TOTAL PROTEIN 6.4 g/dL (6.4-8.9)
[2023-07-01 11:59] LABS: B. PARAPERTUSSIS- RESP PCR PAN NOT DETECTED; B. PERTUSSIS- RESP PCR PANEL NOT DETECTED; C. PNEUMONIAE- RESP PCR PANEL NOT DETECTED; CORONAVIRUS 229E-RESP PCR NOT DETECTED; CORONAVIRUS HKU1-RESP PCR NOT DETECTED; CORONAVIRUS NL63-RESP PCR NOT DETECTED; CORONAVIRUS OC43-RESP PCR NOT DETECTED; HUMAN METAPNEUMOVIRUS NOT DETECTED; INFLUENZA A- RESP PCR PANEL NOT DETECTED; INFLUENZA B - RESP PCR PANEL NOT DETECTED; M. PNEUMONIAE- RESP PCR PANEL NOT DETECTED; PARAINFLUENZA VIRUS 1 NOT DETECTED; PARAINFLUENZA VIRUS 2 NOT DETECTED; PARAINFLUENZA VIRUS 3 NOT DETECTED; PARAINFLUENZA VIRUS 4 NOT DETECTED; RHINOVIRUS/ENTEROVIRUS NOT DETECTED; RSV- RESP PCR PANEL NOT DETECTED; SARS-CoV-2 -RESP PCR PANEL NOT DETECTED
[2023-07-01] MEDS ORDERED: TAMSULOSIN 0.4 MG CAPSULE PO STA (12:52)
[2023-07-01 13:22] VITALS: BP 149/65; O2SAT 96
== END 2023-07-01 13:24 | disposition home or self-care (01) ==
LOC: EDUNIT# → ED 09:04
DX: J44.1 Chronic obstructive pulmonary disease with (acute) exacerbation (principal); K59.00 Constipation, unspecified; M25.551 Pain in right hip; R33.9 Retention of urine, unspecified; I10 Essential (primary) hypertension; Z11.52 Encounter for screening for COVID-19
CPT/HCPCS: 36415; 51798; 71045; 73502; 80053; 81003; 83690; 83735; 85025; 87633; 94640; 94664; 99284; 99285; A9270; J8540; 81001; 87086

== ENCOUNTER 2023-12-02 07:02 | Outpatient (CLI) | payer MEDICARE, OTHER ==
[2023-12-02 08:17] LABS: ALBUMIN 4.5 g/dL (3.2-5.5); ALBUMIN/GLOBULIN RATIO 1.9 (1.0-2.2); ALKALINE PHOSPHATASE 38 IU/L (42-121); ALT ALANINE AMINOTRANSFERASE 16 IU/L (10-60); AST ASPARTATE AMINOTRANSFERASE 18 IU/L (10-42); BILIRUBIN,TOTAL 0.6 mg/dL (0.2-1.0); BUN - BLOOD UREA NITROGEN 21 mg/dL (6-20); CALCIUM 10.3 mg/dL (8.5-10.3); CARBON DIOXIDE - CO2 34 mmol/L (21-32); CHLORIDE 97 mmol/L (101-111); CHOL/HDL RATIO 2.3 (<5.0); CHOLESTEROL 142 mg/dL; CREATININE 1.2 mg/dL (0.6-1.3); GFR - MDRD 58 (>89); GLUCOSE 119 mg/dL (74-104); HDL CHOLESTEROL 63 mg/dL; LDL CHOLESTEROL,CALCULATED 64 mg/dL; POTASSIUM 3.8 mmol/L (3.5-4.5); SODIUM 132 mmol/L (135-145); TOTAL PROTEIN 6.9 g/dL (6.4-8.9); TRIGLYCERIDES 73 mg/dL (48-352); VLDL CHOLESTEROL 15 mg/dL
== END 2023-12-02 07:03 | disposition home or self-care (01) ==
LOC: LAB 07:02
PROVIDERS: ATTEND Internal Medicine Cardiovascular Disease
DX: I10 Essential (primary) hypertension (principal)
CPT/HCPCS: 36415; 80053; 80061; 83721

== ENCOUNTER 2023-12-23 07:03 | Outpatient (CLI) | payer MEDICARE, OTHER ==
[2023-12-23 07:30] LABS: CALCIUM 9.8 mg/dL (8.5-10.3); MAGNESIUM 1.9 mg/dL (1.7-2.3); POTASSIUM 3.8 mmol/L (3.5-4.5)
== END 2023-12-23 07:04 | disposition home or self-care (01) ==
LOC: LAB 07:03
PROVIDERS: ATTEND Internal Medicine Cardiovascular Disease
DX: I10 Essential (primary) hypertension (principal)
CPT/HCPCS: 36415; 80048; 83735; 83930

== ENCOUNTER 2024-01-14 06:57 | Outpatient (CLI) | payer MEDICARE, OTHER ==
[2024-01-14 07:25] LABS: CALCIUM 9.8 mg/dL (8.5-10.3); POTASSIUM 3.5 mmol/L (3.5-4.5)
== END 2024-01-14 06:58 | disposition home or self-care (01) ==
LOC: LAB 06:57
PROVIDERS: ATTEND Internal Medicine Cardiovascular Disease
DX: I10 Essential (primary) hypertension (principal); R79.89 Other specified abnormal findings of blood chemistry
CPT/HCPCS: 36415; 80048; 83935

== ENCOUNTER 2024-02-14 06:38 | Outpatient (CLI) | payer MEDICARE, OTHER | END 2024-02-14 23:59 | disposition critical access hospital (66) | LOC: EMS 06:38 | DX: R53.1 Weakness (principal); R53.83 Other fatigue; R35.0 Frequency of micturition; R39.89 Other symptoms and signs involving the genitourinary system; R09.89 Other specified symptoms and signs involving the circulatory and respiratory systems | CPT/HCPCS: A0425; A0427 ==

== ENCOUNTER 2024-02-14 06:42 | Emergency (ER) | payer MEDICARE, OTHER ==
[2024-02-14 07:17] LABS: BASOPHILS % (AUTO) 0.4 %; EOSINOPHILS # (AUTO) 0.2 10^3/uL (0.0-0.7); EOSINOPHILS % (AUTO) 3.2 %; HCT - HEMATOCRIT 37.5 % (42.0-52.0); HGB - HEMOGLOBIN 12.5 g/dL (14.0-18.0); LYMPHOCYTES # (AUTO) 0.9 10^3/uL (1.5-3.5); LYMPHOCYTES % (AUTO) 19.6 %; MEAN CORPUSCULAR HEMOGLOBIN 31.9 pg (27.0-31.0); MEAN CORPUSCULAR HGB CONC 33.3 g/dL (32.0-36.0); MEAN CORPUSCULAR VOLUME 95.7 fL (80.0-94.0); MEAN PLATELET VOLUME 9.5 fL (7.4-11.4); MONOCYTES # (AUTO) 0.5 10^3/uL (0.0-1.0); MONOCYTES % (AUTO) 9.7 %; NEUTROPHILS # (AUTO) 3.1 10^3/uL (1.5-6.6); NEUTROPHILS % (AUTO) 66.7 %; PLT - PLATELET COUNT 245 10^3/uL (130-450); RED BLOOD COUNT 3.92 10^6/uL (4.70-6.10); RED CELL DISTRIBUTION WIDTH 12.5 % (12.0-15.0); WHITE BLOOD COUNT 4.7 x10^3/uL (4.8-10.8)
--- NOTE | 2024-02-14 08:17 | ED Physician Documentation ---
History of Present Illness - Stated complaint Stated Complaint: WEAKNESS - Chief complaint Chief Complaint: General - History obtained from History obtained from: Patient - Additonal information Additional information: The patient comes to the emergency department with chief complaint of generalized weakness. He states that he was feeling fine yesterday when he went to bed but that when he got up to brush his teeth this morning, he just felt generally weak and chilled. He denies any fevers. No nausea or vomiting. No diarrhea. No cough or shortness of breath. The patient states that he has a history of COPD and a distant history of treatment for arterial disease with both coronary artery bypass grafting and stenting in his legs. No other complaints at this time. He does note that he was at a [employer] a couple of days ago and wonders if he may have picked up something there. No specific sick contacts. PD PAST MEDICAL HISTORY - Past Medical History Past Medical History: Yes Cardiovascular: Hypertension, High cholesterol, Coronary artery disease, [place] Respiratory: COPD, Emphysema GI: Other - Past Surgical History Past Surgical History: Yes Cardiovascular: CABG - Present Medications Home Medications: Ambulatory Orders Medication Instructions Recorded Confirmed Atorvastatin Calcium [Lipitor] 40 mg PO DAILY PM 11/10/13 07/01/23 Lisinopril 40 mg PO DAILY 11/10/13 07/01/23 Pantoprazole Sodium [Protonix] 40 mg PO DAILY 11/10/13 07/01/23 Chlorthalidone 25 mg PO DAILY 09/08/18 07/01/23 Albuterol Sulf [Ventolin Hfa 1 - 2 puffs INH Q4HR PRN #1 each 07/01/23 Inhaler] Docusate Sodium 100Mg Capsule 100 mg PO DAILY #20 cap 07/01/23 [Colace 100Mg Capsule] HYDROcod/ACETAM 5/325 [[place] 5/325] 1 ea PO Q6H PRN #14 tablet 07/01/23 Meloxicam [Mobic] 7.5 mg PO BID 10 Days #20 tablet 07/01/23 Tamsulosin [Flomax] 0.4 mg PO DAILY #20 cap 07/01/23 dexAMETHasone [Decadron] 4 mg PO DAILY #5 tablet 07/01/23 - Allergies Allergies/Adverse Reactions: Allergies Allergy/AdvReac Type Severity Reaction Status Date / Time Sulfa (Sulfonamide Allergy Intermediate Rash Verified 02/14/24 06:49 Antibiotics) - Social History Does the pt smoke?: No Smoking Status: Never smoker Does the pt drink ETOH?: No Does the pt have substance abuse?: No - Immunizations Immunizations are current?: Yes - POLST Patient has POLST: No PD ED PE NORMAL - Vitals Vital signs reviewed: Yes - General General: Alert and oriented X 3, No acute distress, Well developed/nourished - HEENT HEENT: Atraumatic, EOMI, Moist mucous membranes - Neck Neck: Supple, no meningeal sign - Cardiac Cardiac: RRR, No murmur - Respiratory Respiratory: No respiratory distress, Clear bilaterally - Abdomen Abdomen: Soft, Non tender, Non distended - Derm Derm: Normal color, Warm and dry, No rash - Extremities Extremities: No deformity, No edema - Neuro Neuro: Other (Alert, grossly intact. No focal deficits.) - Psych Psych: Normal mood, Normal affect Results - Vitals Vitals: Oxygen O2 Source Room air - Labs Labs: Laboratory Tests 02/14/24 02/14/24 02/14/24 07:08 07:08 07:08 WBC 4.7 L RBC 3.92 L Hgb 12.5 L Hct 37.5 L MCV 95.7 H MCH 31.9 H MCHC 33.3 RDW 12.5 Plt Count 245 MPV 9.5 Neut # (Auto) 3.1 Lymph # (Auto) 0.9 L [place] # (Auto) 0.5 Eos # (Auto) 0.2 Baso # (Auto) 0.0 Absolute Nucleated RBC 0.00 Nucleated RBC % 0.0 PT 12.0 INR 1.1 Sodium Potassium Chloride Carbon Dioxide Anion Gap BUN Creatinine Estimated GFR (MDRD) Glucose Calcium Total Bilirubin AST ALT Alkaline Phosphatase Troponin I High Sens 20.3 H* B-Natriuretic Peptide Total Protein Albumin Globulin Albumin/Globulin Ratio Lipase Urine Color Urine Clarity Urine pH Ur Specific [place] Urine Protein Urine Glucose (UA) Urine Ketones Urine Occult Blood Urine Nitrite Urine Bilirubin Urine Urobilinogen Ur Leukocyte Esterase Ur Microscopic Review Urine Culture Comments Nasal Adenovirus (PCR) Nasal B. parapertussis DNA (PCR) Nasal Coronavir 229E PCR Nasal Coronavir HKU1 PCR Nasal Coronavir NL63 PCR Nasal Coronavir OC43 PCR Nasal Enterovir/Rhinovir PCR Nasal Influenza B PCR Nasal Influenza A PCR Nasal Parainfluen 1 PCR Nasal Parainfluen 2 PCR Nasal Parainfluen 3 PCR Nasal Parainfluen 4 PCR Nasal RSV (PCR) Nasal B.pertussis DNA PCR Nasal C.pneumoniae (PCR) [place] Human Metapneumo PCR Nasal M.pneumoniae (PCR) Nasal SARS-CoV-2 (PCR) 02/14/24 02/14/24 02/14/24 07:08 07:08 07:30 WBC RBC Hgb Hct MCV MCH MCHC RDW Plt Count MPV Neut # (Auto) Lymph # (Auto) [place] # (Auto) Eos # (Auto) Baso # (Auto) Absolute Nucleated RBC Nucleated RBC % PT INR Sodium 133 L Potassium 3.5 Chloride 96 L Carbon Dioxide 28 Anion Gap 9.0 BUN 18 Creatinine 1.1 Estimated GFR (MDRD) 64 L Glucose 125 H Calcium 9.8 Total Bilirubin 0.5 AST 17 ALT 13 Alkaline Phosphatase 36 L Troponin I High Sens B-Natriuretic Peptide 63 Total Protein 6.1 L Albumin 4.0 Globulin 2.1 Albumin/Globulin Ratio 1.9 Lipase 31 Urine Color Urine Clarity Urine pH Ur Specific [place] Urine Protein Urine Glucose (UA) Urine Ketones Urine Occult Blood Urine Nitrite Urine Bilirubin Urine Urobilinogen Ur Leukocyte Esterase Ur Microscopic Review Urine Culture Comments Nasal Adenovirus (PCR) NOT DETECTED Nasal B. parapertussis DNA (PCR) NOT DETECTED Nasal Coronavir 229E PCR NOT DETECTED Nasal Coronavir HKU1 PCR NOT DETECTED Nasal Coronavir NL63 PCR NOT DETECTED Nasal Coronavir OC43 PCR NOT DETECTED Nasal Enterovir/Rhinovir PCR NOT DETECTED Nasal Influenza B PCR NOT DETECTED Nasal Influenza A PCR NOT DETECTED Nasal Parainfluen 1 PCR NOT DETECTED Nasal Parainfluen 2 PCR NOT DETECTED Nasal Parainfluen 3 PCR NOT DETECTED Nasal Parainfluen 4 PCR NOT DETECTED Nasal RSV (PCR) NOT DETECTED Nasal B.pertussis DNA PCR NOT DETECTED Nasal C.pneumoniae (PCR) NOT DETECTED [place] Human Metapneumo PCR NOT DETECTED Nasal M.pneumoniae (PCR) NOT DETECTED Nasal SARS-CoV-2 (PCR) NOT DETECTED 02/14/24 02/14/24 08:58 10:05 WBC RBC Hgb Hct MCV MCH MCHC RDW Plt Count MPV Neut # (Auto) Lymph # (Auto) [place] # (Auto) Eos # (Auto) Baso # (Auto) Absolute Nucleated RBC Nucleated RBC % PT INR Sodium Potassium Chloride Carbon Dioxide Anion Gap BUN Creatinine Estimated GFR (MDRD) Glucose Calcium Total Bilirubin AST ALT Alkaline Phosphatase Troponin I High Sens 18.3 B-Natriuretic Peptide Total Protein Albumin Globulin Albumin/Globulin Ratio Lipase Urine Color YELLOW Urine Clarity CLEAR Urine pH 7.5 Ur Specific [place] 1.015 Urine Protein NEGATIVE Urine Glucose (UA) NEGATIVE Urine Ketones NEGATIVE Urine Occult Blood NEGATIVE Urine Nitrite NEGATIVE Urine Bilirubin NEGATIVE Urine Urobilinogen 0.2 (NORMAL) Ur Leukocyte Esterase NEGATIVE Ur Microscopic Review NOT INDICATED Urine Culture Comments NOT INDICATED Nasal Adenovirus (PCR) Nasal B. parapertussis DNA (PCR) Nasal Coronavir 229E PCR Nasal Coronavir HKU1 PCR Nasal Coronavir NL63 PCR Nasal Coronavir OC43 PCR Nasal Enterovir/Rhinovir PCR Nasal Influenza B PCR Nasal Influenza A PCR Nasal Parainfluen 1 PCR Nasal Parainfluen 2 PCR Nasal Parainfluen 3 PCR Nasal Parainfluen 4 PCR Nasal RSV (PCR) Nasal B.pertussis DNA PCR Nasal C.pneumoniae (PCR) [place] Human Metapneumo PCR Nasal M.pneumoniae (PCR) Nasal SARS-CoV-2 (PCR) PD Medical Decision Making - ED course Complexity details: reviewed results, re-evaluated patient, considered differential, d/w patient ED course: The patient was treated with an initial liter of IV normal saline and then a second one after he failed to produce urine following the first. He was worked up with labs including CBC and ER abdominal panel, as well as a respiratory PCR panel, all of which were unremarkable. The patient felt somewhat better after being hydrated and I felt he was stable for discharge home. Have advised him to get some rest and plenty of fluids and to follow-up with his primary doctor. No specific cause of his symptoms has been identified. No emergent condition identified. Departure - Departure Disposition: 01 Home, Self Care Clinical Impression: Dehydration Condition: Stable Instructions: ED Dehydration Comments: Your labs overall look fairly good. Your urinalysis shows no infection and we did not find any of the viruses we can test for on your respiratory panel. You were dehydrated and required 2 L of fluid before you were able to give us a urine sample. This is probably part of the reason you been feeling weak. You also may have one of the many viral illnesses that are going around and this may also be causing you to feel a sense of generalized weakness. Please be sure you are getting 8 to 10 cups of water every day. Get plenty of rest for the next couple of days and call your primary doctor if you are not starting to feel better by next weekend. Forms: PCP List Discharge Date/Time: 02/14/24 11:36
[2024-02-14 08:22] LABS: INR 1.1 (0.8-1.2)
--- NOTE | 2024-02-14 08:27 | XRAY Report ---
PROCEDURE: Chest 1V INDICATIONS: WEAKNESS TECHNIQUE: One view of the chest was acquired. COMPARISON: 07/01/2023. FINDINGS: Surgical changes and devices: Remote CABG. Lungs and pleura: No pleural effusions or pneumothorax. Subtle focal infiltrate or atelectasis, left lower lobe. Mediastinum: Mediastinal contours appear normal. Heart size is normal. Bones and chest wall: No suspicious bony lesions. Overlying soft tissues appear unremarkable. IMPRESSION: Subtle focal atelectasis versus infiltrate, left lower lobe. Progress films are recommended until clear. Findings are concordant with preliminary interpretation provided by [facility]. Reviewed by: Chad Perez MD on 02/14/2024 8:25 AM PDT Approved by: Chad Perez MD on 02/14/2024 8:25 AM PDT Station ID: [id number]
[2024-02-14] MEDS: SODIUM CHLORIDE 0.9% 1,000 ML IV STA (08:41)
[2024-02-14 09:08] LABS: B. PARAPERTUSSIS- RESP PCR PAN NOT DETECTED; B. PERTUSSIS- RESP PCR PANEL NOT DETECTED; C. PNEUMONIAE- RESP PCR PANEL NOT DETECTED; CORONAVIRUS 229E-RESP PCR NOT DETECTED; CORONAVIRUS HKU1-RESP PCR NOT DETECTED; CORONAVIRUS NL63-RESP PCR NOT DETECTED; CORONAVIRUS OC43-RESP PCR NOT DETECTED; HUMAN METAPNEUMOVIRUS NOT DETECTED; INFLUENZA A- RESP PCR PANEL NOT DETECTED; INFLUENZA B - RESP PCR PANEL NOT DETECTED; M. PNEUMONIAE- RESP PCR PANEL NOT DETECTED; PARAINFLUENZA VIRUS 1 NOT DETECTED; PARAINFLUENZA VIRUS 2 NOT DETECTED; PARAINFLUENZA VIRUS 3 NOT DETECTED; PARAINFLUENZA VIRUS 4 NOT DETECTED; RHINOVIRUS/ENTEROVIRUS NOT DETECTED; RSV- RESP PCR PANEL NOT DETECTED; SARS-CoV-2 -RESP PCR PANEL NOT DETECTED
[2024-02-14 09:50] VITALS: O2SAT 98
[2024-02-14 10:43] LABS: BILIRUBIN,URINE NEGATIVE (NEGATIVE); GLUCOSE, URINE (UA) NEGATIVE (NEGATIVE); KETONES,URINE (UA) NEGATIVE (NEGATIVE); LEUKOCYTE ESTERASE, URINE NEGATIVE (NEGATIVE); NITRITE,URINE NEGATIVE (NEGATIVE); OCCULT BLOOD,URINE NEGATIVE (NEGATIVE); PH,URINE 7.5 PH (5.0-7.5); PROTEIN,URINE NEGATIVE (NEGATIVE); UROBILINOGEN,URINE 0.2 (NORMAL) E.U./dL (NORMAL)
[2024-02-14 10:44] LABS: CLARITY,URINE CLEAR (CLEAR)
[2024-02-14 11:05] LABS: ALBUMIN/GLOBULIN RATIO 1.9 (1.0-2.2); BILIRUBIN,TOTAL 0.5 mg/dL (0.2-1.0); CALCIUM 9.8 mg/dL (8.5-10.3); CREATININE 1.1 mg/dL (0.6-1.3); POTASSIUM 3.5 mmol/L (3.5-4.5); TOTAL PROTEIN 6.1 g/dL (6.4-8.9)
[2024-02-14 11:19] VITALS: BP 163/77
== END 2024-02-14 11:36 | disposition home or self-care (01) ==
LOC: EDUNIT# → ED 06:42
DX: E86.0 Dehydration (principal); J44.9 Chronic obstructive pulmonary disease, unspecified; I25.10 Atherosclerotic heart disease of native coronary artery without angina pectoris; Z95.1 Presence of aortocoronary bypass graft; I10 Essential (primary) hypertension; E78.00 Pure hypercholesterolemia, unspecified; I25.2 Old myocardial infarction; Z79.899 Other long term (current) drug therapy
CPT/HCPCS: 36415; 80053; 81001; 81003; 83690; 83735; 83880; 84484; 85025; 85610; 87086; 87633; 93005; 99283; 99284

== ENCOUNTER 2024-02-17 07:53 | Outpatient (CLI) | payer MEDICARE, OTHER ==
--- NOTE | 2024-02-17 21:07 | XRAY Report ---
PROCEDURE: Chest 2V INDICATIONS: SHORTNESS OF BREATH TECHNIQUE: 2 views of the chest were acquired. COMPARISON: 02/14/2024, 06/23/2023 FINDINGS: Surgical changes and devices: Post CABG changes are seen. Lungs and pleura: No pleural effusions or pneumothorax. There is a mild degree of streaky opacity w ithin the left lung base. Lungs are otherwise clear. Flattening of the hemidiaphragms can be seen on the lateral view. Mediastinum: The aorta is prominent and tortuous. The cardiac contours are within normal limits. Bones and chest wall: No suspicious bony lesions. Age-appropriate degenerative changes are seen. Overlying soft tissues appear unremarkable. IMPRESSION: Improving presumed atelectasis can be seen at the left lung base. Follow-up radiographs are recommended to resolution. If this does not resolve by plain film, then a f ollow-up chest CT would be recommended for further evaluation for a potential underlying mass. Postoperative and degenerative changes are seen. Reviewed by: Chris Delcid MD on 02/17/2024 8:05 PM [facility] Approved by: Chris Delcid MD on 02/17/2024 8:05 PM [facility] Station ID: [id number]
== END 2024-02-17 07:54 | disposition home or self-care (01) ==
LOC: DI 07:53
PROVIDERS: ATTEND Family Medicine
DX: R06.02 Shortness of breath (principal)

== ENCOUNTER 2024-03-29 09:08 | Outpatient (CLI) | payer MEDICARE, OTHER ==
[2024-03-29 09:21] LABS: BASOPHILS % (AUTO) 0.5 %; EOSINOPHILS # (AUTO) 0.1 10^3/uL (0.0-0.7); EOSINOPHILS % (AUTO) 2.2 %; HCT - HEMATOCRIT 39.7 % (42.0-52.0); HGB - HEMOGLOBIN 13.3 g/dL (14.0-18.0); LYMPHOCYTES # (AUTO) 1.1 10^3/uL (1.5-3.5); LYMPHOCYTES % (AUTO) 18.7 %; MEAN CORPUSCULAR HEMOGLOBIN 31.3 pg (27.0-31.0); MEAN CORPUSCULAR HGB CONC 33.5 g/dL (32.0-36.0); MEAN CORPUSCULAR VOLUME 93.4 fL (80.0-94.0); MEAN PLATELET VOLUME 9.1 fL (7.4-11.4); MONOCYTES # (AUTO) 0.6 10^3/uL (0.0-1.0); MONOCYTES % (AUTO) 10.5 %; NEUTROPHILS # (AUTO) 3.9 10^3/uL (1.5-6.6); NEUTROPHILS % (AUTO) 67.9 %; PLT - PLATELET COUNT 286 10^3/uL (130-450); RED BLOOD COUNT 4.25 10^6/uL (4.70-6.10); RED CELL DISTRIBUTION WIDTH 12.3 % (12.0-15.0); WHITE BLOOD COUNT 5.8 x10^3/uL (4.8-10.8)
[2024-03-29 10:05] LABS: ALBUMIN 4.7 g/dL (3.2-5.5); ALBUMIN/GLOBULIN RATIO 2.5 (1.0-2.2); ALKALINE PHOSPHATASE 40 IU/L (42-121); ALT ALANINE AMINOTRANSFERASE 19 IU/L (10-60); AST ASPARTATE AMINOTRANSFERASE 21 IU/L (10-42); BILIRUBIN,TOTAL 0.6 mg/dL (0.2-1.0); BUN - BLOOD UREA NITROGEN 13 mg/dL (6-20); CARBON DIOXIDE - CO2 31 mmol/L (21-32); CHLORIDE 92 mmol/L (101-111); CHOLESTEROL 132 mg/dL; GFR - MDRD 71 (>89); GLUCOSE 113 mg/dL (74-104); HDL CHOLESTEROL 67 mg/dL; LDL CHOLESTEROL,CALCULATED 50 mg/dL; LDL/HDL RATIO 0.7 (<3.6); POTASSIUM 4.4 mmol/L (3.5-4.5); SODIUM 130 mmol/L (135-145); TOTAL PROTEIN 6.6 g/dL (6.4-8.9); TRIGLYCERIDES 74 mg/dL; VLDL CHOLESTEROL 15 mg/dL
[2024-03-29 10:17] LABS: THYROID STIMULATING HORMONE 1.31 uIU/mL (0.34-5.60)
== END 2024-03-29 09:09 | disposition home or self-care (01) ==
LOC: LAB 09:08
PROVIDERS: ATTEND Family Medicine
DX: I11.0 Hypertensive heart disease with heart failure (principal); I50.9 Heart failure, unspecified; E11.65 Type 2 diabetes mellitus with hyperglycemia; I25.10 Atherosclerotic heart disease of native coronary artery without angina pectoris; I73.9 Peripheral vascular disease, unspecified; J44.9 Chronic obstructive pulmonary disease, unspecified; R53.81 Other malaise; Z13.220 Encounter for screening for lipoid disorders
CPT/HCPCS: 36415; 80053; 80061; 83721; 84443; 85025